=== PATIENT | male | born 1970 | race African-American/Black ===

== ENCOUNTER 2017-02-01 11:57 | Emergency (ER) | payer MEDICAID ==
[~2017-02-01] VITALS: Ht 175.3 cm; Wt 98.0 kg
[~2017-02-01 11:57] MED LIST: AMLO10TA4 PO; OMEP20CA4 PO
[2017-02-01] MEDS ORDERED: KETOROLAC 30MG/ML VIAL IM ONE (12:30)
[2017-02-01] MEDS ORDERED: CYCLOBENZAPRINE 10MG TABLET PO ONE (12:30)
[2017-02-01 13:01] VITALS: BP 151/105
== END 2017-02-01 13:38 | disposition home or self-care (01) ==
LOC: ER 12:37
DX: M54.5 Low back pain (principal); F17.210 Nicotine dependence, cigarettes, uncomplicated; R20.2 Paresthesia of skin
CPT/HCPCS: 96372; 99283; J1885

== ENCOUNTER 2018-04-12 15:28 | Emergency (ER) | payer MEDICAID ==
[~2018-04-12] VITALS: Ht 175.3 cm; Wt 98.6 kg
[2018-04-12] MEDS ORDERED: ACETAMINOPHEN 650MG/20.3ML UDC PO ONE (18:15)
[2018-04-12] MEDS ORDERED: ACETAMINOPHEN 325MG TABLET PO ONE (18:30)
[2018-04-12] MEDS ORDERED: HYDROCHLOROTHIAZIDE 25MG TABLET PO ONE (19:15)
[2018-04-12 19:46] VITALS: BP 120/75
== END 2018-04-12 19:51 | disposition home or self-care (01) ==
LOC: ER 15:28
DX: I10 Essential (primary) hypertension (principal); R51 Headache; F17.200 Nicotine dependence, unspecified, uncomplicated
CPT/HCPCS: 99283

== ENCOUNTER 2018-09-15 23:16 | Emergency (ER) | payer MEDICAID ==
[~2018-09-15] VITALS: Ht 175.3 cm; Wt 110.9 kg
[2018-09-16] MEDS ORDERED: IBUPROFEN 600MG TABLET PO NR (01:12)
[2018-09-16] MEDS ORDERED: TETANUS, DIPHTHERIA, PERTUSSIS VAC/PF 0.5ML (>7YR OLD) IM ONE (01:15)
[2018-09-16 04:04] LABS: BASOPHILS % 1.3 % (0.0-2.0); EOSINOPHILS % 7.3 % (0.0-5.0); HEMATOCRIT. 44.7 % (42.0-52.0); HEMOGLOBIN. 14.8 g/dL (14.0-18.0); LYMPHOCYTES % 35.3 % (20.0-50.0); MEAN CORPUSCULAR HEMOGLOBIN 30.5 pg (28.0-32.0); MEAN CORPUSCULAR VOLUME 91.7 fL (80.0-94.0); MEAN PLATELET VOLUME 7.5 fl (7.4-10.4); MONOCYTES % 8.4 % (2.0-8.0); NEUTROPHILS % 47.7 % (40.0-76.0); PLATELET 233 x1000/uL (130-400); RED BLOOD CELL COUNT 4.87 mill/uL (4.7-6.1); RED CELL DISTRIBUTION WIDTH 15.1 % (11.6-14.6)
[2018-09-16 04:08] LABS: CHLORIDE 105 mEq/L (98-107)
[2018-09-16 05:53] LABS: CLARITY URINE CLEAR (CLEAR); COLOR URINE DARK YELLOW (YELLOW); KETONES URINE TRACE (NEGATIVE); LEUKOCYTE ESTERASE URINE NEGATIVE (NEGATIVE); NITRITE URINE NEGATIVE (NEGATIVE); OCCULT BLOOD URINE NEGATIVE (NEGATIVE); PH URINE 5.5 (4.5-8.0); PROTEIN URINE NEGATIVE (NEGATIVE); SPECIFIC GRAVITY URINE 1.035 (1.005-1.030)
[2018-09-16] MEDS ORDERED: ENOXAPARIN 100MG/ML SYR SUBCUT ONE (06:30)
[2018-09-16 07:23] VITALS: BP 145/110
== END 2018-09-16 07:26 | disposition home or self-care (01) ==
LOC: ER 23:16
DX: I82.492 Acute embolism and thrombosis of other specified deep vein of left lower extremity (principal); F17.200 Nicotine dependence, unspecified, uncomplicated; F12.10 Cannabis abuse, uncomplicated; I10 Essential (primary) hypertension
CPT/HCPCS: 36415; 71045; 80053; 81003; 85025; 85610; 90471; 90715; 93971; 96372; 99284; C1893; J1650; Z7610